=== PATIENT | male | born 1955 | race Caucasian/White ===

== ENCOUNTER 2020-06-24 12:13 | Day surgery (SDCO) | payer OTHER ==
[~2020-06-24] VITALS: Ht 170.2 cm; Wt 88.6 kg
[2020-06-24 12:52] LABS: BASOPHIL 1.2 % (0-2); EOSINOPHIL 11.4 % (0-5); HCT 47.4 % (42.0-52.0); MCH 31.6 pg (25.0-31.0); MCHC 33.8 g/dL (32.0-36.0); MCV 93.5 fL (78.0-100.0); MONOCYTE 7.4 % (0-12); MPV 9.9 fL (6.0-9.5); NEUTROPHIL 60.8 % (41-80); NRBC 0; PLT 320 K/uL (150-400); RBC 5.07 M/uL (4.70-6.00); RDW 13.8 % (11.5-14.0)
[2020-06-24 13:30] LABS: PRO-BNP 62 pg/mL (<125)
[2020-06-24 13:35] LABS: ALBUMIN 3.7 g/dL (3.4-5.0); BILIRUBIN - TOTAL 0.7 mg/dL (0.2-1.0); BUN/CREAT RATIO (CALC) 14.1 RATIO; CREATININE 0.85 mg/dL (0.67-1.17); GLOBULIN (CALCULATION) 4.1 g/dL; POTASSIUM 3.1 mmol/L (3.5-5.1); TOTAL PROTEIN 7.8 g/dL (6.4-8.2)
[2020-06-24 14:16] LABS: CORONAVIRUS 2019 SARS-COV-2 NEGATIVE (NEGATIVE)
[2020-06-24 14:55] LABS: INFLUENZA A NAA NEGATIVE (NEGATIVE)
[2020-06-24] MEDS ORDERED: CLARITIN10 MG PO (15:33)
[2020-06-24] MEDS ORDERED: SINGULAIR10 MG PO (15:34)
[2020-06-24] MEDS ORDERED: ZOLOFT50 MG PO (15:35)
[2020-06-24] MEDS ORDERED: BEVESPI AEROS10.7 GM INH (15:37)
[2020-06-24] MEDS ORDERED: VENTOLIN (2.5 MG/3 M INH (15:40)
[2020-06-25 05:50] LABS: BASOPHIL 0.1 % (0-2); EOSINOPHIL 0 % (0-5); HGB 15.1 g/dl (13.2-18.0); LYMPHOCYTE 13.8 % (15-48); MCH 31.3 pg (25.0-31.0); MCHC 33.6 g/dL (32.0-36.0); MCV 93.4 fL (78.0-100.0); MPV 10.6 fL (6.0-9.5); NEUTROPHIL 81.5 % (41-80); NRBC 0; PLT 337 K/uL (150-400); RBC 4.82 M/uL (4.70-6.00); WBC 8.5 K/uL (4.0-10.5)
[2020-06-25 06:17] LABS: CREATININE 0.89 mg/dL (0.67-1.17); POTASSIUM 3.9 mmol/L (3.5-5.1)
[2020-06-25] MEDS ORDERED: VENTOLIN HFA IN18 GM INH (09:28)
[2020-06-25] MEDS ORDERED: FLOVENT HFA12 GM INH (10:40)
[2020-06-25] MEDS ORDERED: FLONASE ALLER15.8 ML (10:43)
[2020-06-25] MEDS ORDERED: ZITHROMAX250 MG PO (10:43)
[2020-06-25] MEDS ORDERED: PREDNISONE 20MG20 MG PO (10:43)
--- NOTE | 2020-06-25 12:53 | NUR ---
PT CHOSE [facility] FOR HOME [facility]. GAVE PT. COPY OF CHOICE FORM. PT. WILL CALL [facility] WHEN ARRIVE HOME SO THAT [facility] CAN DELIVER CONCENTRATOR. SENT REFERRAL TO [facility] FOR HOME O2.
--- NOTE | 2020-06-25 12:55 | NUR ---
PT. TO D/C HOME WITH SPOUSE THIS DATE. [facility] TO DELIVER AN OXYGEN TRAVEL TANK AND CONCENTRATOR TO THE HOME.
--- NOTE | 2020-06-25 14:07 | NUR ---
PT LIVES WITH SPOUSE; PLEASE ADVISE OF ANY DISCHARGE NEEDS
== END 2020-06-25 15:10 | disposition home or self-care (01) ==
LOC: FER 12:13 → FMS 14:39
PROVIDERS: Emergency Medicine; ADMIT Internal Medicine
DX: J44.1 Chronic obstructive pulmonary disease with (acute) exacerbation (principal); J44.0 Chronic obstructive pulmonary disease with (acute) lower respiratory infection; J30.2 Other seasonal allergic rhinitis; Z87.442 Personal history of urinary calculi; Z98.890 Other specified postprocedural states; Z57.2 Occupational exposure to dust; Z20.822 Contact with and (suspected) exposure to COVID-19; Z86.59 Personal history of other mental and behavioral disorders
CPT/HCPCS: 36415; 36600; 71045; 71250; 80048; 80053; 82803; 83605; 83880; 84145; 84484; 85025; 85379; 87040; 93005; 94640; 94664; 94667; G0378; J1650; J2920; J2930; U0002